=== PATIENT | male | born 1995 | race Caucasian/White ===

== ENCOUNTER 2019-01-29 22:59 | Emergency (ER) | payer OTHER ==
[~2019-01-29] VITALS: Ht 188 cm; Wt 79.5 kg
[2019-01-29 23:00] VITALS: BP 144/66
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
== END 2019-01-30 00:16 | disposition home or self-care (01) ==
LOC: EDBD 22:59 → M ED 22:59
DX: S02.2XXA Fracture of nasal bones, initial encounter for closed fracture (principal); S02.40DA Maxillary fracture, left side, initial encounter for closed fracture; Y04.8XXA Assault by other bodily force, initial encounter; Y92.89 Other specified places as the place of occurrence of the external cause